=== PATIENT | female | born 1940 | race Caucasian/White ===

== ENCOUNTER 2022-03-08 12:11 | Inpatient (IN) | payer OTHER, SELFPAY ==
[2022-03-08] VITALS (29 sets, daily range): BP systolic 122–170; BP diastolic 40–81; PULSE 71–94; RESP 13–22; TEMP 36.8; O2SAT 95–100; BMI 21.5
--- NOTE | ~2022-03-08 | US_ITS ---
EXAMINATION: US carotid duplex BI DATE: 03/11/2022 10:12 INDICATION: Stroke. Cerebral atherosclerosis. TECHNIQUE: Grayscale, color Doppler, and pulsed Doppler images of the cervical carotid arteries were obtained. The degree of vessel stenosis is placed in one of the following categories: normal, <50%, 5 0-69%, >=70% but less than near-occlusion, near-occlusion, or total occlusion. Note that percent sten osis relative to normal distal artery lumen diameter is indirectly measured from velocity measurement s as described by Prasanth, et al. Radiology 2003; 229:340-346. COMPARISON: None. FINDINGS: RIGHT: The right common carotid artery (CCA) peak systolic velocity (PSV) is 59 cm/s. The right internal car otid artery (ICA) PSV is 88 cm/s. The right ICA end-diastolic velocity (EDV) is 17 cm/s. The right IC A/CCA PSV ratio is 1.5. Grayscale and color Doppler images yield an estimate of <50% diameter reducti on from plaque in the ICA. The external carotid artery (ECA) PSV is 67 cm/s. There is antegrade flow in the right vertebral artery. LEFT: The left CCA PSV is 58 cm/s. The left ICA PSV is 81 cm/s. The left ICA EDV is 16 cm/s. The left ICA/C CA PSV ratio is 1.4. Grayscale and color Doppler images yield an estimate of <50% diameter reduction from plaque in the ICA. The ECA PSV is 64 cm/s. There is antegrade flow in the left vertebral artery. IMPRESSION: 1. <50% stenosis in the right internal carotid artery. 2. <50% stenosis in the left internal carotid artery. Reviewed, dictated and finalized at location A.
--- NOTE | ~2022-03-08 | CT_ITS ---
EXAMINATION: CT brain wo con DATE: 03/08/2022 23:30 INDICATION: Confusion. TECHNIQUE: Computed tomography (CT) of the head was performed without intravenous contrast. The mA wa s adjusted according to patient size. Iterative reconstruction technique was employed. The dose-lengt h product was 605.33 mGy-cm. COMPARISON: None FINDINGS: There is an old infarct in left cerebellum. There is an old infarct in right caudate nucleu s. There are old infarcts in the left thalamus and left basal ganglia. There are scattered areas of l ow attenuation in the cerebral white matter. There is no intracranial hemorrhage, acute infarction, o r abnormal intracranial mass lesion. The ventricles are normal in size. There is mild mucosal thicken ing in right sphenoid sinus. There are likely changes of ocular lens replacement surgeries. The masto id air cells are normal. IMPRESSION: 1. Old infarcts in the bilateral basal ganglia, left thalamus, and left cerebellum. 2. Mild nonspecific cerebral white matter disease, which likely represents chronic small vessel ische cristiane disease. Reviewed, dictated and finalized at location A. IMPRESSION: 1. Old infarcts in the bilateral basal ganglia, left thalamus, and left cerebel lum. 2. 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
--- NOTE | ~2022-03-08 | XR_ITS ---
EXAMINATION: XR chest 1V portable DATE: 03/08/2022 12:36 INDICATION: Altered mental status. TECHNIQUE: A single frontal view of the chest was obtained. COMPARISON: None. FINDINGS: There is mild atelectasis at left lung base. No pleural effusion or pneumothorax. The heart size is normal. There is a transverse fracture of surgical neck of proximal right humerus. IMPRESSION: 1. Mild atelectasis at left lung base. 2. Displaced transverse fracture of surgical neck of proximal right humerus. Reviewed, dictated and finalized at location A.
--- NOTE | ~2022-03-08 | MR_ITS ---
EXAMINATION: MR brain/brain stem wo con DATE: 03/10/2022 13:56 INDICATION: ams, weakness, hx of strokes TECHNIQUE: Magnetic resonance imaging (MRI) of the brain and brainstem was performed without intraven ous contrast. Sequences included sagittal and axial T1-weighted SE, axial diffusion-weighted FS EPI A SSET, axial T2*-weighted GRE, axial T2-weighted FLAIR Propeller, and axial T2-weighted Propeller. Pos tcontrast axial and coronal T1-weighted SE was obtained. Apparent diffusion coefficient (ADC) maps we re created. COMPARISON: CT brain 03/08/2022. FINDINGS: Focal and small area of cortical restricted diffusion in the posterior left frontal lobe near the sharon maverick. Old bilateral basal ganglia, left lamina, and left cerebellar infarcts. No MRI evidence of hemor rhage or extra-axial collection. No suspicious foci of susceptibility to suggest prior intraparenchym al hemorrhage. Mild chronic white matter change. Mild chronic atrophy. Ventricles are proportional to brain volume. Basilar cisterns are patent. Flow voids are preserved. The aerated spaces are clear. Bilateral lens replacements. IMPRESSION: 1. Focal, small cortical infarct in the posterior left frontal lobe, near the vertex. Results reported telephonically to the patient's nurse Zandra Gilmore by Dr. Rivera at 4:05 PM on . Reviewed, dictated and finalized at location K. IMPRESSION: 1. Focal, small cortical infarct in the posterior left frontal lobe, near the v ertex. Results reported telephonically to the patient's nurse Zandra Gilmore by Dr. Rivera at 4:05 PM on 03/10/2022.
[2022-03-08 12:18] LABS: Glucose Point of Care 133 mg/dl (65-105)
--- NOTE | 2022-03-08 12:18 | ECG_ITS ---
Measurements Intervals [place] Rate: 71 P: 53 WV: 183 QRS: 34 QRSD: 89 T: 63 QT: 381 QTc: 414 Interpretive Statements SINUS RHYTHM WITHIN NORMAL LIMITS NO PREVIOUS ECG AVAILABLE FOR COMPARISON Electronically Signed On 03-09-2022 16:26:09 CDT by Perico Durham M.D.
[2022-03-08 12:48] LABS: Add Urine Microscopic? YES; Appearance Urine Cloudy (Clear); Bilirubin Urine 1+ (Negative); Blood Urine 2+ (Negative); Color Urine Yellow (Yellow); Glucose Urine UA Negative (Negative); Ketones Urine Negative (Negative); Leukocyte Esterase Ur 3+ LEU/UL (Negative); Nitrate Urine Positive (Negative); Protein Urine 2+ mg/dL (Negative); pH Urine 5.5 (5.0-9.0)
[2022-03-08] MEDS: SODIUM CHLORIDE 0.9% IV 1,000 ML 999 ML IV CONT (12:49)
[2022-03-08 12:56] LABS: Mucus Urine Rare /lpf; WBC Clumps Urine Present /HPF; WBC Urine >75 /hpf
[2022-03-08 13:10] LABS: Basophils Absolute Auto 0.1 K/mm3 (0.0-0.1); Basophils Percent Auto 0.6 % (0.2-1.2); Eosinophils Absolute Auto 0.3 K/mm3 (0-0.3); Eosinophils Percent Auto 2.8 % (0-4.4); Hematocrit 35.3 % (37.0-47.0); Hemoglobin 11.3 g/dL (12.0-15.0); Immature Granulocyte Absolute 0.05 K/mm3 (0.00-0.031); Immature Granulocyte Percent A 0.5 % (0-0.5); Lymphocytes Absolute Auto 1.21 K/mm3 (0.9-3.2); Lymphocytes Percent Auto 11.4 % (18.3-44.2); Mean Corpuscular Hemoglobin 30.1 pg (26-34); Mean Corpuscular Volume 93.9 fl (80-100); Mean Platelet Volume 10.5 fl (7.4-10.4); Monocytes Absolute Auto 0.9 K/mm3 (0.1-0.6); Monocytes Percent Auto 8.3 % (2.6-8.5); Neutrophils Absolute Auto 8.1 K/mm3 (1.3-6.7); Neutrophils Percent Auto 76.4 % (45.5-73.1); Platelet Count Result 180 k/mm3 (150-375); Red Blood Count 3.76 M/mm3 (4.2-5.4); Red Cell Distribution Width 13.4 % (11.5-14.5); White Blood Count 10.6 K/mm3 (4.5-10.0)
[2022-03-08 13:19] LABS: Alanine Aminotransferase 12 U/L (6-35); Albumin Level 3.9 g/dL (3.5-5.1); Alkaline Phosphatase 101 U/L (38-126); Anion Gap 9 mmol/L (8-16); Aspartate Amino Transferase 16 U/L (14-36); Bilirubin,Total 0.7 mg/dL (0.2-1.3); Blood Urea Nitrogen 41 mg/dL (7-17); Calcium 9.3 mg/dL (8.4-10.2); Carbon Dioxide 23 mmol/L (22-30); Chloride 105 mmol/L (98-107); Estimated Glomerular Filt Rate 29; Glucose 133 mg/dL (65-110); Potassium 3.8 mmol/L (3.4-5.0); Sodium 137 mmol/L (137-145)
[2022-03-08 13:21] LABS: Lactic Acid Reflex 1.9 mmol/L (0.7-2.0)
[2022-03-08 13:57] LABS: INR 1.1; Prothrombin Time 13.9 Seconds (11.1-14.7)
[2022-03-08 13:59] LABS: Partial Thromboplastin Time 32.8 SECONDS (22.3-36.8)
--- NOTE | 2022-03-08 14:57 | ED.GENADULT ---
HPI - General Adult General Chief complaint: Altered Mental Status Stated complaint: Altered Mental Status Time Seen by Provider: 03/08/22 12:14 History of Present Illness HPI narrative: Patient is an 82-year-old female who presents to the ER with acute confusion. Patient is somnolent and poorly responsive to noxious stimuli. No recent trauma or fall. Family reports she was slightly more confused yesterday when visiting her but apparently something changed and lasted 40 minutes. She woke patient has history of CVA. Patient moves all extremities to noxious stimuli wakes up with morning and yells at this physician during exam. Related Data Allergies Allergy/AdvReac Type Severity Reaction Status Date / Time cilostazol Allergy Unknown Verified 03/08/22 13:21 ciprofloxacin Allergy Unknown Verified 03/08/22 13:21 codeine Allergy Unknown Verified 03/08/22 13:21 enalapril Allergy Unknown Verified 03/08/22 13:21 Penicillins Allergy Unknown Verified 03/08/22 13:21 pentoxifylline Allergy Unknown Verified 03/08/22 13:21 semaglutide [From Ozempic] Allergy Unknown Verified 03/08/22 13:21 tetanus and diphtheria Allergy Unknown Verified 03/08/22 13:21 toxoids Review of Systems Review of Systems: ROS unobtainable: Yes unobtainable due to medical condition PMFSH Past Medical History Medical History (Updated 03/08/22 @ 15:03 by García Rojas MD) CKD (chronic kidney disease), stage III CVA (cerebral vascular accident) Diabetes History of breast cancer Humerus fracture Surgical History Surgical History (Updated 03/08/22 @ 15:00 by García Rojas MD) History of hip replacement Social History Social History (Updated 03/08/22 @ 15:01 by García Rojas MD) Smoking status: Never smoker Exam Narrative: GENERAL: Fatigued-appearing, well-nourished, and in no acute distress. HEAD: Normocephalic, atraumatic. EYES: PERRL and EOMI. ENT: Mucous membranes moist. CHEST: Clear to auscultation. No respiratory distress. HEART: Regular rate and rhythm. Normal peripheral pulses. ABDOMEN: Soft, nontender, nondistended. EXTREMITIES: Normal range of motion. No edema. SKIN: Warm, dry, no rash. NEURO: Moves all extremities with normal strength and noxious stimuli. No facial droop. ALert and oriented x1. Course Course Emergency Course: Admitted to hospital service for UTI and metabolic encephalopathy. Patient improving with fluids. Vital Signs Vital signs: Vital Signs Pulse Rate 81 03/08/22 12:06 Respiratory Rate 16 03/08/22 12:06 Blood Pressure 154/57 H 03/08/22 12:06 Pulse Oximetry 96 03/08/22 12:06 Oxygen Delivery Room Air 03/08/22 12:06 Pulse Rate 78 03/08/22 13:45 Respiratory Rate 19 03/08/22 13:45 Blood Pressure 166/52 H 03/08/22 13:31 Pulse Oximetry 98 03/08/22 13:45 Oxygen Delivery Room Air 03/08/22 12:06 Medical Decision Making Vital Signs Vital Signs: Vital Signs Pulse Rate 81 03/08/22 12:06 Respiratory Rate 16 03/08/22 12:06 Blood Pressure 154/57 H 03/08/22 12:06 Pulse Oximetry 96 03/08/22 12:06 Oxygen Delivery Room Air 03/08/22 12:06 Pulse Rate 78 03/08/22 13:45 Respiratory Rate 19 03/08/22 13:45 Blood Pressure 166/52 H 03/08/22 13:31 Pulse Oximetry 98 03/08/22 13:45 Oxygen Delivery Room Air 03/08/22 12:06 Lab Data Result diagrams: 03/08/22 12:50 03/08/22 12:50 Labs: Lab Results 03/08/22 03/08/22 03/08/22 Range/Units 12:16 12:31 12:50 WBC 10.6 H (4.5-10.0) K/mm3 RBC 3.76 L (4.2-5.4) M/mm3 Hgb 11.3 L (12.0-15.0) g/dL Hct 35.3 L (37.0-47.0) % MCV 93.9 (80-100) fl MCH 30.1 (26-34) pg MCHC 32.0 (32-36) g/dl RDW 13.4 (11.5-14.5) % Plt Count 180 (150-375) k/mm3 MPV 10.5 H (7.4-10.4) fl Immature Gran % (Auto) 0.5 (0-0.5) % Neut % (Auto) 76.4 H (45.5-73.1) % Lymph % (Auto) 11.4 L (18.3-44.2) % [place] % (Auto)
--- NOTE | 2022-03-08 16:50 | PM.IMHP ---
H&P: HPI History of Present Illness Date/Time: 03/08/22 16:50 <Christie Thomas PA-C - Last Filed: 03/08/22 23:04> Chief Complaint: Confusion. <Christie Thomas PA-C - Last Filed: 03/08/22 23:04> Narrative: This is an 82-year-old female with history of stroke, dyslipidemia, diabetes, COPD, and DVT who presented to the ED via EMS from [place] for evaluation of confusion. She is alert and oriented at the time my evaluation however seems to be a bit confused as to why she was brought here to the ER today and as such some of the following is supplemented via a review of her electronic medical records. She reports that she lives in her own home in [place] and that last week she sustained a fall in the driveway and broke her right arm. She has apparently been at [place] for rehab since that time. Family members saw her yesterday and this morning and they report that she seemed perhaps a bit confused though nothing significant or startling. Around noontime staff noticed that she was confused and difficult to arouse and emergency services were contacted. EMS gave her Narcan however I do not see that there was any documented response. She was confused and a bit combative in the emergency department and I was asked to admit her after she was found to have evidence of urinary tract infection as well as renal insufficiency. Currently she is complaining of urinary urgency and frequency though she denies overt dysuria. She reports chills but no fever to her knowledge. We did discuss why she was brought here today and she does not really remember the episode this morning however she has noticed that she has seemed confused since she arrived to [place] and she feels like ?they are doping me up.? I do not see any narcotics listed on her medication list, however. <Christie Thomas PA-C - Last Filed: 03/08/22 23:04> Review of Systems Review of Systems: Twelve systems were reviewed. Somewhat limited as she is confused about the events of this morning. No history of seizures or documented seizure activity today. She sustained a fall last week in which she broke her right arm. She does not think she had any head trauma. She has not had a fall since last week. She does not think that she has had a Dennis catheter and recently. No cold or flu symptoms. No chest pain or shortness of breath. Appetite has been okay but she has not been eating as much as she is having difficulties feeding herself and drinking as her right arm is in a sling and she is right-handed. Except as documented, all other systems were reviewed and are negative. <Christie Thomas PA-C - Last Filed: 03/08/22 23:04> [facility] Past Medical History Medical History: Medical History Cerebrovascular accident Chronic kidney disease Deep venous thrombosis History of breast cancer Mitral valve insufficiency Osteoarthritis Rheumatic mitral insufficiency Right humeral fracture Type 2 diabetes mellitus Vitamin D deficiency <Christie Thomas PA-C - Last Filed: 03/08/22 23:04> Surgical History Surgical History: Surgical History History of bladder surgery History of hip replacement History of hysterectomy History of left mastectomy <Christie Thomas PA-C - Last Filed: 03/08/22 23:04> Family History Family History: Family History Other Diabetes mellitus Hypertension <Christie Thomas PA-C - Last Filed: 03/08/22 23:04> Social History Social History: Social History Social History: Surrogate decision maker: Perico Allison, son. Code status: Do not resuscitate. Smoking status: Former smoker Smoking end date: 09/16/16 Alcohol intake: never Substance use: never Substance use type: does not use Spiritual care concerns: No
[2022-03-08] MEDS: SODIUM CHLORIDE 0.9% IV 1,000 ML 125 ML IV CONT (20:29)
[2022-03-08] MEDS: ACETAMINOPHEN 325 MG TABLET 650 MG PO (21:08)
[2022-03-08 22:25] LABS: Glucose Point of Care 153 mg/dl (65-105)
[2022-03-09 00:19] VITALS: BP 150/56; PULSE 73; RESP 14; TEMP 36.4; O2SAT 98
[2022-03-09 05:08] LABS: Hematocrit 34.9 % (37.0-47.0); Hemoglobin 11.2 g/dL (12.0-15.0); Mean Corpuscular HGB Conc 32.1 g/dl (32-36); Mean Corpuscular Hemoglobin 30.6 pg (26-34); Mean Corpuscular Volume 95.4 fl (80-100); Mean Platelet Volume 10.2 fl (7.4-10.4); Platelet Count Result 187 k/mm3 (150-375); Red Blood Count 3.66 M/mm3 (4.2-5.4); Red Cell Distribution Width 13.2 % (11.5-14.5); White Blood Count 6.9 K/mm3 (4.5-10.0)
[2022-03-09 05:19] LABS: Anion Gap 6 mmol/L (8-16); Blood Urea Nitrogen 35 mg/dL (7-17); Calcium 8.6 mg/dL (8.4-10.2); Carbon Dioxide 20 mmol/L (22-30); Chloride 113 mmol/L (98-107); Estimated CRCL calculation 24 ml/min; Estimated Glomerular Filt Rate 33; Glucose 104 mg/dL (65-110); Magnesium 1.8 mg/dL (1.6-2.3); Potassium 3.7 mmol/L (3.4-5.0); Sodium 139 mmol/L (137-145)
[2022-03-09 05:40] LABS: Hemoglobin A1C 5.9 % (<5.7)
[2022-03-09] MEDS: SODIUM CHLORIDE 0.9% IV 1,000 ML 125 ML IV CONT (05:52)
[2022-03-09 05:55] VITALS: BP 165/61; PULSE 73; RESP 16; TEMP 36.4; O2SAT 98
[2022-03-09 07:37] LABS: Glucose Point of Care 115 mg/dl (65-105)
[2022-03-09] MEDS: PRAVASTATIN SODIUM 10 MG TABLET PO (08:24)
[2022-03-09] MEDS: ASPIRIN 81 MG ENTERIC TABLET PO (08:24)
[2022-03-09] MEDS: ACETAMINOPHEN 325 MG TABLET 650 MG PO ×2 (08:24→19:33)
[2022-03-09] MEDS: polyethylene glycoL 3350 17 GM POWD.PACK PO (08:24)
[2022-03-09] MEDS: CLOPIDOGREL BISULFATE 75 MG TABLET PO (08:24)
[2022-03-09] MEDS: CHOLECALCIFEROL 1,000 UNITS TABLET 2000 UNITS PO (08:24)
[2022-03-09] MEDS: ENOXAPARIN 30 MG/0.3 ML SYRINGE SUB-Q (08:24)
[2022-03-09] MEDS: CYANOCOBALAMIN 1,000 MCG TABLET 1000 MCG PO (08:24)
[2022-03-09 09:00] VITALS: BP 112/44; PULSE 76; RESP 16; TEMP 36.2; O2SAT 97
--- NOTE | 2022-03-09 10:00 | P.PNIM_ITS ---
Progress Note: A&P Assessment and Plan (1) Urinary tract infection: Code(s): N39.0 - Urinary tract infection, site not specified Status: Acute Assessment and Plan: * Reported urinary symptoms including urgency and frequency * WBC elevated at time of admission, current 6.9 * UA indicates infection with cloudy yellow urine, positive nitrate, 3+ leukocyte esterase, WBC >75, WBC clumps present * Continue Rocephin for now * Urine culture pending * Adjust therapy as cultures are resulted (2) Transient alteration of awareness: Code(s): R40.4 - Transient alteration of awareness Status: Acute Assessment and Plan: * Etiology not entirely clear though she appears to be back at baseline at this time. * Seems to be better, she is A&O x 4 * Nursing reports odd statements and questionable conversation * Could be secondary to UTI * HX of CVA * No indications from current medications (3) Chronic kidney disease: Code(s): N18.9 - Chronic kidney disease, unspecified Status: Acute Assessment and Plan: * Current BUN/Cr 35/1.50 * Trending down since admission * IV fluids given * Baseline unknown * avoid nephrotoxic medications * Trend labs * Labs in the am (4) Type 2 diabetes mellitus: Code(s): E11.9 - Type 2 diabetes mellitus without complications Status: Acute Assessment and Plan: * Current glucose 104 * A1c 5.9 * Hold metformin while hospitalized. * Initiate sliding scale insulin * Accu-Cheks * hypoglycemic protocol * Trend glucose * Adjust therapy as indicated (5) Right humeral fracture: Code(s): S42.301A - Unspecified fracture of shaft of humerus, right arm, initial encounter for closed fracture Status: Acute Assessment and Plan: * Sustained in a ground level fall last week. * Acetaminophen available as needed for pain. * Continue sling for immobilization. Time Spent With Patient Time with patient: Greater than 35 minutes Subjective Date/time seen: 03/09/22 10:00 Interval history: 03/09/22 10:00 Patient is sitting in the chair. She is feeling ok. She stated that she is having some pain in her arm. She denies any chest pain, shortness of breath, nausea, vomiting, diarrhea, constipation, weakness, or fatigue. She stated that she is tired, however, she is getting good sleep. She also stated that urination just comes on. She knows when it comes, however, it is very urgent and she has to go as soon as she has the feeling. 03/08/22? 16:50 This is an 82-year-old female with history of stroke, dyslipidemia, diabetes, COPD, and DVT who presented to the ED via EMS from [place] for evaluation of confusion. She is alert and oriented at the time my evaluation however seems to be a bit confused as to why she was brought here to the ER today and as such some of the following is supplemented via a review of her electronic medical records. She reports that she lives in her own home in [place] and that last week she sustained a fall in the driveway and broke her right arm. She has apparently been at [facility] for rehab since that time. Family members saw her yesterday and this morning and they report that she seemed perhaps a bit confused though nothing significant or startling. Around noontime staff noticed that she was confused and difficult to arouse and emergency services were contacted. EMS gave her Narcan however I do not see that there was any documente
--- NOTE | 2022-03-09 10:00 | PM.IMPN ---
Progress Note: A&P Assessment and Plan (1) Urinary tract infection: Code(s): N39.0 - Urinary tract infection, site not specified Status: Acute Assessment and Plan: Reported urinary symptoms including urgency and frequency WBC elevated at time of admission, current 6.9 UA indicates infection with cloudy yellow urine, positive nitrate, 3+ leukocyte esterase, WBC >75, WBC clumps present Continue Rocephin for now Urine culture pending Adjust therapy as cultures are resulted (2) Transient alteration of awareness: Code(s): R40.4 - Transient alteration of awareness Status: Acute Assessment and Plan: Etiology not entirely clear though she appears to be back at baseline at this time. Seems to be better, she is A&O x 4 Nursing reports odd statements and questionable conversation Could be secondary to UTI HX of CVA No indications from current medications (3) Chronic kidney disease: Code(s): N18.9 - Chronic kidney disease, unspecified Status: Acute Assessment and Plan: Current BUN/Cr 35/1.50 Trending down since admission IV fluids given Baseline unknown avoid nephrotoxic medications Trend labs Labs in the am (4) Type 2 diabetes mellitus: Code(s): E11.9 - Type 2 diabetes mellitus without complications Status: Acute Assessment and Plan: Current glucose 104 A1c 5.9 Hold metformin while hospitalized. Initiate sliding scale insulin Accu-Cheks hypoglycemic protocol Trend glucose Adjust therapy as indicated (5) Right humeral fracture: Code(s): S42.301A - Unspecified fracture of shaft of humerus, right arm, initial encounter for closed fracture Status: Acute Assessment and Plan: Sustained in a ground level fall last week. Acetaminophen available as needed for pain. Continue sling for immobilization. Time Spent With Patient Time with patient: Greater than 35 minutes Subjective Date/time seen: 03/09/22 10:00 Interval history: 03/09/22 10:00 Patient is sitting in the chair. She is feeling ok. She stated that she is having some pain in her arm. She denies any chest pain, shortness of breath, nausea, vomiting, diarrhea, constipation, weakness, or fatigue. She stated that she is tired, however, she is getting good sleep. She also stated that urination just comes on. She knows when it comes, however, it is very urgent and she has to go as soon as she has the feeling. 03/08/22? 16:50 This is an 82-year-old female with history of stroke, dyslipidemia, diabetes, COPD, and DVT who presented to the ED via EMS from [place] for evaluation of confusion. She is alert and oriented at the time my evaluation however seems to be a bit confused as to why she was brought here to the ER today and as such some of the following is supplemented via a review of her electronic medical records. She reports that she lives in her own home in [place] and that last week she sustained a fall in the driveway and broke her right arm. She has apparently been at [facility] for rehab since that time. Family members saw her yesterday and this morning and they report that she seemed perhaps a bit confused though nothing significant or startling. Around noontime staff noticed that she was confused and difficult to arouse and emergency services were contacted. EMS gave her Narcan however I do not see that there was any documented response. She was confused and a bit combative in the emergency department and I was asked to admit her after she was found to have evidence of urinary tract infection as well as renal insufficiency. Currently she is complaining of urinary urgency and frequency though she denies overt dysuria. She reports chills but no fever to her knowledge. We did discuss why she was brought here today and she does not really remember the episode this morning however she has noticed yoana
[2022-03-09 10:36] VITALS: BMI 21.9
[2022-03-09 11:43] LABS: Glucose Point of Care 182 mg/dl (65-105)
[2022-03-09 14:00] VITALS: BP 107/45; PULSE 72; RESP 16; TEMP 36.4; O2SAT 98
[2022-03-09 16:32] LABS: Glucose Point of Care 132 mg/dl (65-105)
[2022-03-09 19:42] VITALS: BP 145/48; PULSE 81; RESP 17; TEMP 36.4; O2SAT 98
[2022-03-09 20:41] LABS: Glucose Point of Care 134 mg/dl (65-105)
[2022-03-09 23:29] VITALS: BP 160/58; PULSE 79; RESP 17; TEMP 36.2; O2SAT 98
[2022-03-10 04:00] VITALS: BP 160/61; PULSE 84; RESP 17; TEMP 36.3; O2SAT 98
[2022-03-10 05:41] LABS: Alanine Aminotransferase 10 U/L (6-35); Albumin Level 3.8 g/dL (3.5-5.1); Alkaline Phosphatase 97 U/L (38-126); Anion Gap 9 mmol/L (8-16); Aspartate Amino Transferase 17 U/L (14-36); Bilirubin,Total 0.6 mg/dL (0.2-1.3); Blood Urea Nitrogen 32 mg/dL (7-17); Carbon Dioxide 21 mmol/L (22-30); Chloride 108 mmol/L (98-107); Estimated CRCL calculation 26 ml/min; Estimated Glomerular Filt Rate 36; Glucose 130 mg/dL (65-110); Magnesium 1.7 mg/dL (1.6-2.3); Potassium 3.7 mmol/L (3.4-5.0); Sodium 138 mmol/L (137-145)
[2022-03-10 05:58] LABS: Basophils Absolute Auto 0.1 K/mm3 (0.0-0.1); Basophils Percent Auto 0.8 % (0.2-1.2); Eosinophils Absolute Auto 0.5 K/mm3 (0-0.3); Eosinophils Percent Auto 6.2 % (0-4.4); Hematocrit 36.3 % (37.0-47.0); Hemoglobin 11.8 g/dL (12.0-15.0); Immature Granulocyte Absolute 0.08 K/mm3 (0.00-0.031); Lymphocytes Absolute Auto 1.27 K/mm3 (0.9-3.2); Lymphocytes Percent Auto 15.2 % (18.3-44.2); Mean Corpuscular HGB Conc 32.5 g/dl (32-36); Mean Corpuscular Hemoglobin 30.1 pg (26-34); Mean Corpuscular Volume 92.6 fl (80-100); Mean Platelet Volume 10.3 fl (7.4-10.4); Monocytes Absolute Auto 0.7 K/mm3 (0.1-0.6); Monocytes Percent Auto 8.8 % (2.6-8.5); Neutrophils Absolute Auto 5.7 K/mm3 (1.3-6.7); Platelet Count Result 218 k/mm3 (150-375); Red Blood Count 3.92 M/mm3 (4.2-5.4); Red Cell Distribution Width 13.1 % (11.5-14.5); White Blood Count 8.3 K/mm3 (4.5-10.0)
[2022-03-10 07:38] LABS: Glucose Point of Care 138 mg/dl (65-105)
[2022-03-10] MEDS: ENOXAPARIN 30 MG/0.3 ML SYRINGE SUB-Q (09:10)
[2022-03-10] MEDS: CEFDINIR 300 MG CAPSULE PO (09:11)
[2022-03-10] MEDS: CYANOCOBALAMIN 1,000 MCG TABLET 1000 MCG PO (09:11)
[2022-03-10] MEDS: PRAVASTATIN SODIUM 10 MG TABLET PO (09:11)
[2022-03-10] MEDS: polyethylene glycoL 3350 17 GM POWD.PACK PO (09:11)
[2022-03-10] MEDS: ASPIRIN 81 MG ENTERIC TABLET PO (09:11)
[2022-03-10] MEDS: CHOLECALCIFEROL 1,000 UNITS TABLET 2000 UNITS PO (09:11)
[2022-03-10] MEDS: CLOPIDOGREL BISULFATE 75 MG TABLET PO (09:11)
[2022-03-10 11:40] LABS: Glucose Point of Care 161 mg/dl (65-105)
--- NOTE | 2022-03-10 12:25 | PM.IMPN ---
Progress Note: A&P Assessment and Plan (1) Acute metabolic encephalopathy: Code(s): G93.41 - Metabolic encephalopathy <Susan JustenRobin Ramesh PA-C - Last Filed: 03/10/22 16:17> Status: Acute <Susanlenka Quinteroashish PA-C - Last Filed: 03/10/22 16:17> Assessment and Plan: Patient has worsening confusion today and was weaker with physical therapy -could be due to UTI, will change oral antibiotics to IV -obtain blood cultures -I spoke with the son who states 10 days ago the patient was completely normal and this is not like her. He is concerned that she has had another stroke as she has had strokes in the past -although stroke is less likely, due to her increased weakness and posterior leaning with PT, will order brain MRI. No focal deficits on exam <Susanlenka Ramesh PA-C - Last Filed: 03/10/22 16:17> (2) Urinary tract infection: Code(s): N39.0 - Urinary tract infection, site not specified <Susan JustenRobin Ramesh PA-C - Last Filed: 03/10/22 16:17> Status: Acute <Susan ARobin Domitila PA-C - Last Filed: 03/10/22 16:17> Assessment and Plan: Urine culture growing klebs aerogenes susceptible to ceftriaxone -due to her worsening mental status, will transition to ceftriaxone. -Will monitor for allergic reactions. Patient has a penicillin allergy but that cross sensitivity is low <Susan Ramesh PA-C - Last Filed: 03/10/22 16:17> (3) Transient alteration of awareness: Code(s): R40.4 - Transient alteration of awareness <Susan Mirta Ramesh PA-C - Last Filed: 03/10/22 16:17> Status: Acute <Susan ARobin Ramesh PA-C - Last Filed: 03/10/22 16:17> Assessment and Plan: As above <Susan ARobin Ramesh PA-C - Last Filed: 03/10/22 16:17> (4) Chronic kidney disease: Code(s): N18.9 - Chronic kidney disease, unspecified <Susanlenka Ramesh PA-C - Last Filed: 03/10/22 16:17> Status: Acute <Susan Ramesh PA-C - Last Filed: 03/10/22 16:17> Assessment and Plan: Family confirms that she has chronic kidney disease. Creatinine is stable <Susan Ramesh PA-C - Last Filed: 03/10/22 16:17> (5) Type 2 diabetes mellitus: Code(s): E11.9 - Type 2 diabetes mellitus without complications <Susan Ramesh PA-C - Last Filed: 03/10/22 16:17> Status: Acute <Susan Ramesh PA-C - Last Filed: 03/10/22 16:17> Assessment and Plan: Last glucose 161 -A1c 5.9 -Hold metformin while hospitalized. -continuing sliding scale <Susan Ramesh PA-C - Last Filed: 03/10/22 16:17> (6) Right humeral fracture: Code(s): S42.301A - Unspecified fracture of shaft of humerus, right arm, initial encounter for closed fracture <Susan Ramesh PA-C - Last Filed: 03/10/22 16:17> Status: Acute <Susan Ramesh PA-C - Last Filed: 03/10/22 16:17> Assessment and Plan: Sustained in a ground level fall last week. Acetaminophen available as needed for pain. Continue sling for immobilization. <Susan Ramesh PA-C - Last Filed: 03/10/22 16:17> Assessment and Plan: Patient has a non gap slight acidosis that is improving. Could be due to normal saline she received earlier -monitor daily labs <Susan Ramesh PA-C - Last Filed: 03/10/22 16:17> Time Spent With Patient Time with patient: 25 - 35 minutes <Susan Ramesh PA-C - Last Filed: 03/10/22 16:17> Subjective Date/time seen: 03/10/22 12:25 <Susan Ramesh PA-C - Last Filed: 03/10/22 16:17> Interval history: Pt is a 82 y/o female here for confusion. Patient was seen today and per staff she was more confused and weak. She was unable to tell me where she was but was able to hold a conversation for the most part. She states she has pain all over and that she has no appetite. She cannot localize any certain pain and denies chest pain and shortness of breath. I called her son, S
[2022-03-10 14:00] VITALS: BP 164/61; PULSE 79; RESP 20; TEMP 36.6; O2SAT 100
--- NOTE | 2022-03-10 16:10 | PC.NURSE ---
Recieved a call from Emmanuel Rivera reporting results of patient brain MRI and it shows small acute infarct in left posterior frontal lobe. Spoke to Susan Ramesh and gave results. No new orders given at this time.
[2022-03-10 16:45] LABS: Glucose Point of Care 124 mg/dl (65-105)
[2022-03-10 19:29] VITALS: BP 178/58; PULSE 76; RESP 16; TEMP 36.3; O2SAT 97
[2022-03-10 21:40] LABS: Glucose Point of Care 126 mg/dl (65-105)
[2022-03-11 01:30] VITALS: BP 147/47; PULSE 76; RESP 18; TEMP 36.1; O2SAT 98
[2022-03-11 04:05] VITALS: BP 153/57; PULSE 77; RESP 18; TEMP 36.6; O2SAT 100
[2022-03-11 05:42] LABS: Basophils Absolute Auto 0.1 K/mm3 (0.0-0.1); Basophils Percent Auto 0.9 % (0.2-1.2); Eosinophils Absolute Auto 0.4 K/mm3 (0-0.3); Eosinophils Percent Auto 4.9 % (0-4.4); Hematocrit 36.3 % (37.0-47.0); Hemoglobin 11.4 g/dL (12.0-15.0); Immature Granulocyte Absolute 0.09 K/mm3 (0.00-0.031); Immature Granulocyte Percent A 1.1 % (0-0.5); Lymphocytes Absolute Auto 1.47 K/mm3 (0.9-3.2); Lymphocytes Percent Auto 18.1 % (18.3-44.2); Mean Corpuscular HGB Conc 31.4 g/dl (32-36); Mean Corpuscular Hemoglobin 30.1 pg (26-34); Mean Corpuscular Volume 95.8 fl (80-100); Monocytes Absolute Auto 0.8 K/mm3 (0.1-0.6); Monocytes Percent Auto 9.8 % (2.6-8.5); Neutrophils Absolute Auto 5.3 K/mm3 (1.3-6.7); Neutrophils Percent Auto 65.2 % (45.5-73.1); Platelet Count Result 199 k/mm3 (150-375); Red Blood Count 3.79 M/mm3 (4.2-5.4); Red Cell Distribution Width 13.2 % (11.5-14.5); White Blood Count 8.1 K/mm3 (4.5-10.0)
[2022-03-11 05:46] LABS: Anion Gap 9 mmol/L (8-16); Blood Urea Nitrogen 32 mg/dL (7-17); Calcium 8.9 mg/dL (8.4-10.2); Carbon Dioxide 20 mmol/L (22-30); Chloride 108 mmol/L (98-107); Cholesterol 102 mg/dL (0-200); Creatine Kinase 46 U/L (30-135); Estimated CRCL calculation 27 ml/min; Estimated Glomerular Filt Rate 39; Glucose 122 mg/dL (65-110); HDL Direct 28 mg/dL; Potassium 3.8 mmol/L (3.4-5.0); Sodium 137 mmol/L (137-145); Triglycerides 140 mg/dL (<150)
[2022-03-11 05:58] LABS: LDL Cholesterol Direct 36 mg/dL
[2022-03-11 07:50] LABS: Glucose Point of Care 136 mg/dl (65-105)
[2022-03-11] MEDS: ASPIRIN 81 MG ENTERIC TABLET PO (11:12)
[2022-03-11] MEDS: CYANOCOBALAMIN 1,000 MCG TABLET 1000 MCG PO (11:13)
[2022-03-11] MEDS: CLOPIDOGREL BISULFATE 75 MG TABLET PO (11:13)
[2022-03-11] MEDS: ACETAMINOPHEN 325 MG TABLET 650 MG PO (11:13)
[2022-03-11] MEDS: CHOLECALCIFEROL 1,000 UNITS TABLET 2000 UNITS PO (11:13)
[2022-03-11] MEDS: ATORVASTATIN 40 MG TABLET PO (11:13)
[2022-03-11] MEDS: ENOXAPARIN 30 MG/0.3 ML SYRINGE SUB-Q (11:14)
--- NOTE | 2022-03-11 11:30 | WPDNEURCNPN ---
Assessment and Plan Assessment and plan (1) Seizure disorder: Code(s): G40.909 - Epilepsy, unspecified, not intractable, without status epilepticus Status: Acute Additional Plan 1 transient alertness of awareness will obtain the EEG to rule out the possibility of seizure or underlying Petterchak status changes because of ongoing chronic encephalopathy and rest of the medical problems will be handed according, her MRI of the brain has revealed focal with small cortical infarct in the posterior left frontal lobe near the aortic with a is the triggering factor for the focal seizure is unclear but again as mentioned above EEG will be obtained in addition to the Doppler studies of the carotid Consult date: 03/11/22 Reason for consult: Change in mental status HPI: Nirmala Allison is a 82 year old female admitted to the hospital through the emergency room for the complaints of acute confusion at the time of initial evaluation in the emergency room she was somnolent and poorly responsive to noxious stimuli there was no history of recent trauma or fall as per the family she was somewhat confused yesterday but subsequently the change in the mental status lasted for 40 minutes patient does have a history of cerebrovascular accident in the past and has been taking multiple medication. she has ongoing history of chronic kidney disease stage 3, diabetes mellitus, and cerebrovascular accident in the past, in addition she has undergone hip replacement she has never smoker and initial evaluation revealed her to have normal vital signs except the blood pressure 154/57 routine labs were normal her chest x-ray revealed only displaced transfer fracture of the surgical neck of the proximal right humerus, she is not alcohol intake or substance user but she is a former smoker but she smoked in September of 2016 her outpatient medications included particularly aspirin 81 mg daily, clopidogrel 75 mg daily, metformin 500 mg twice a day, and pravastatin 10 mg daily her initial lab evaluations were normal she has been admitted to the hospital for the complaints of transient alteration awareness and she was given Narcan in the field as well Review of Systems Review of Systems: All systems reviewed & are unremarkable except as noted in HPI and below PMFSH Past Medical History Medical History Cerebrovascular accident Chronic kidney disease Deep venous thrombosis History of breast cancer Mitral valve insufficiency Osteoarthritis Rheumatic mitral insufficiency Right humeral fracture Type 2 diabetes mellitus Vitamin D deficiency Surgical History Surgical History History of bladder surgery History of hip replacement History of hysterectomy History of left mastectomy Family History Family History Other Diabetes mellitus Hypertension Social History Social History Social History: Surrogate decision maker: Perico Allison, son. Code status: Do not resuscitate. Smoking status: Former smoker Smoking end date: 09/16/16 Alcohol intake: never Substance use: never Substance use type: does not use Spiritual care concerns: No Meds Home Medications and Allergies Home Medications Medication Instructions Recorded Confirmed Type acetaminophen 500 mg tablet 1,000 mg PO BID PRN pain 03/08/22 03/08/22 History aspirin 81 mg tablet 81 mg PO DAILY 03/08/22 03/08/22 History cholecalciferol (vitamin D3) 50 1 cap PO DAILY 03/08/22 03/08/22 History mcg (2,000 unit) capsule clopidogrel 75 mg tablet 1 tablet PO DAILY 03/08/22 03/08/22 History cyanocobalamin (vitamin B-12) 1 tablet PO DAILY 03/08/22 03/08/22 History 1,000 mcg tablet meclizine 12.5 mg tablet 1 tablet PO TID PRN Dizziness 03/08/22 03/08/22 History metformin 500 mg tablet 1 tablet PO DA
[2022-03-11 11:48] LABS: Glucose Point of Care 273 mg/dl (65-105)
--- NOTE | 2022-03-11 13:43 | PCSTNOTE ---
Please refer to the Bedside Swallow Evaluation in the EMR. Please note, silent aspiration cannot be ruled out at bedside.
[2022-03-11 14:00] VITALS: BP 134/56; PULSE 72; RESP 20; TEMP 36.3; O2SAT 98
--- NOTE | 2022-03-11 15:42 | PCPTNOTE ---
The patient treatment was not able to be completed on this date due to RN requesting for patient to rest. Will plan to continue treatment per plan of care.
--- NOTE | 2022-03-11 15:45 | PM.IMPN ---
Progress Note: A&P Assessment and Plan (1) Acute metabolic encephalopathy: Code(s): G93.41 - Metabolic encephalopathy Status: Acute Assessment and Plan: Patient has worsening confusion and was weaker with physical therapy. Chest x-ray showed mild atelectasis at the left lung base. CT the brain showed old infarcts. Brain MRI showed old bilateral basal ganglia, left lamina and left cerebellar infarcts. She was noted to have a focal and small area of cortical restricted diffusion in the posterior left frontal lobe consistent with acute infarct. Suspect acute mental status changes related to stroke and/or UTI. More oriented today but still groggy. She is not on any narcotics. Continue treatment for UTI. Continue Lipitor, Plavix and aspirin. Continue PT and OT. (2) Acute CVA (cerebrovascular accident): Code(s): I63.9 - Cerebral infarction, unspecified Status: Acute Assessment and Plan: MRI of the brain as mentioned above. Patient appears to have had acute small stroke. Appreciate Neurology input. Carotid ultrasound and echocardiogram are pending. Continue aspirin, Plavix and Lipitor. (3) Urinary tract infection: Code(s): N39.0 - Urinary tract infection, site not specified Status: Acute Assessment and Plan: UA noted. BCx NGTD. Urine culture growing Klebsiella aerogenes susceptible to ceftriaxone. Continue IV ceftriaxone. (4) Transient alteration of awareness: Code(s): R40.4 - Transient alteration of awareness Status: Acute Assessment and Plan: As above (5) Acute kidney injury superimposed on chronic kidney disease: Code(s): N17.9 - Acute kidney failure, unspecified; N18.9 - Chronic kidney disease, unspecified Status: Acute Assessment and Plan: Patient has underlying CKD per family. No old records here to review. Creatinine on admission was 1.7 but has trended down to 1.3 now. Probably related to UTI and/or dehydration. Patient continues to have a mild non gap metabolic acidosis probably related to renal recovery. Continue to follow. (6) Type 2 diabetes mellitus: Code(s): E11.9 - Type 2 diabetes mellitus without complications Status: Acute Assessment and Plan: A1c 5.9. The patient's blood glucose was reviewed on 03/11 Glucose is elevated at times but overall well controlled. Continue AccuCheks covering with sliding scale. Hypoglycemia protocol available as needed. Continue to monitor. (7) Right humeral fracture: Code(s): S42.301A - Unspecified fracture of shaft of humerus, right arm, initial encounter for closed fracture Status: Acute Assessment and Plan: Patient had a ground level fall last week and sustained a right humeral fracture. Acetaminophen available as needed for pain. Continue sling for immobilization. Continue PT and OT. Plan DVT prophylaxis: Lovenox Code status: DNR. Subjective Date/time seen: 03/11/22 15:45 Interval history: 82yo female with DM and CKD here for confusion. Patient is more oriented today but still feels confused. She denies chest pain or shortness of breath. She feels groggy today. She did pass her bedside swallow test today and speech therapy recommended regular diet with thin liquids. Exam Narrative: AF 97.3 134/56 72 20 98% ra Gen - NARD lying semi recumbent in bed Chest -lungs clear anteriorly. Normal respiratory rate CV - RRR S1/S2 Abd - Soft, NT/ND, Positive BS Ext - No pedal edema. 2+ radial pulses bilaterally. Right upper extremity in a sling. Neuro - groggy but oriented x4. Nonfocal exam. Normal sensation to the right hand. Psych - Nml mood and affect Skin - Warm and dry Objective Data Vital Signs Vital Signs: Vital Signs - 24 hr 03/10/22 19:29 03/11/22 01:30 03/11/22 04:05 Temperature 97.4 F L 97 F L 97.8 F Pulse Rate 76 76 77 Respiratory Rate 16 18 18 Blood Pressure 178/58 H 147/
[2022-03-11 16:27] LABS: Glucose Point of Care 102 mg/dl (65-105)
[2022-03-11 19:35] VITALS: BP 133/50; PULSE 70; RESP 17; TEMP 36.1; O2SAT 99
[2022-03-11 20:00] VITALS: PULSE 70; RESP 17; O2SAT 99
[2022-03-11 20:53] LABS: Glucose Point of Care 124 mg/dl (65-105)
--- NOTE | 2022-03-12 | ECHO_ITS ---
Patient Info Name: Nirmala Allison Age: 82 years : 1940 Gender: Female Ht: 66 in Wt: 134 lbs BSA: 1.68 m2 HR: 78 bpm BP: 168 / 61 mmHg Technical Quality: Good Exam Date: 03/12/2022 10:25 AM Exam Location: [facility] Pulmonary Exam Room: 256 Patient Status: Inpatient Admit Date: 03/10/2022 Staff Ordering Physician: Susan Ramesh PA-C Panel Maker: Leslie Silva RDCS Attending Provider: Jeff Rain MD Referring Physician: Domitila COREY; Exam Type: CA echo doppler w bubble study Study Info Indications - CVA Complete two-dimensional, color flow and Doppler transthoracic echocardiogram is performed with agitated saline. Contrast/Agitated Saline Contrast/Ag. Saline: Agitated Saline Amount: 20.00 ml Administered By: Mery Jin RDCS Existing IV Access: Yes Summary 1. Left ventricular chamber dimension is normal. 2. Left ventricular systolic function is normal, estimated at 65-70%. 3. The left ventricular diastolic function is grade I diastolic dysfunction. 4. E/e' 8 is minimally elevated. 5. There is mild aortic valve sclerosis. 6. There is trace aortic valve regurgitation. 7. The mitral valve has mildly calcified annulus. 8. There is mild tricuspid valve regurgitation. 9. No pulmonary hypertension, estimated pulmonary arterial systolic pressure is 28 mmHg. Left Ventricle E/e' 8 is minimally elevated. Left ventricular chamber dimension is normal. Left ventricular systolic function is normal, estimated at 65-70%. The left ventricular diastolic function is grade I diastolic dysfunction. Right Ventricle Right ventricular chamber dimension is normal. Right ventricular systolic function is normal. Left Atria Left atrial chamber dimension is normal. Right Atria Right atrial chamber dimension is normal. Atrial Septum Agitated saline injection with and without valsalva maneuver opacified right side cardiac chambers without shunt to left side cardiac chambers. Intact interatrial septum visualized by 2D and agitated saline imaging. Aortic Valve The aortic valve is trileaflet. There is mild aortic valve sclerosis. There is no aortic valve stenosis. There is trace aortic valve regurgitation. Pulmonic Valve There is no pulmonic regurgitation. Mitral Valve The mitral valve has mildly calcified annulus. There is no mitral valve stenosis. There is no mitral valve regurgitation. Tricuspid Valve There is mild tricuspid valve regurgitation. No pulmonary hypertension, estimated pulmonary arterial systolic pressure is 28 mmHg. Pericardium/Pleural There is no pericardial effusion. Inferior Vena Cava Normal inferior vena cava with >50% collapse upon inspiration consistent with normal right atrial pressure, 5 mmHg. Aorta The aortic root size at the sinus of Valsalva is normal. Left Ventricular Outflow Tract Name Value Normal LVOT 2D LVOT Diameter 2.0 cm LVOT Doppler LVOT Peak Gradient 5 mmHg LVOT Mean Gradient 2 mmHg LVOT VTI
[2022-03-12 00:03] VITALS: BP 162/59; PULSE 75; RESP 18; TEMP 35.7; O2SAT 98
[2022-03-12 04:18] VITALS: BP 168/61; PULSE 78; RESP 18; TEMP 35.9; O2SAT 97
[2022-03-12 05:51] LABS: Albumin Level 3.5 g/dL (3.5-5.1); Anion Gap 7 mmol/L (8-16); Blood Urea Nitrogen 33 mg/dL (7-17); Calcium 8.9 mg/dL (8.4-10.2); Carbon Dioxide 25 mmol/L (22-30); Chloride 106 mmol/L (98-107); Estimated CRCL calculation 24 ml/min; Estimated Glomerular Filt Rate 33; Glucose 123 mg/dL (65-110); Magnesium 1.8 mg/dL (1.6-2.3); Phosphorus 3.9 mg/dL (2.5-4.5); Potassium 3.6 mmol/L (3.4-5.0); Sodium 138 mmol/L (137-145)
[2022-03-12 07:04] LABS: Folic Acid 8.9 ng/mL (2.76->20); Vitamin B12 > 1000.0 pg/mL (239-931)
[2022-03-12 07:58] LABS: Glucose Point of Care 126 mg/dl (65-105)
[2022-03-12] MEDS: ATORVASTATIN 40 MG TABLET PO (09:16)
[2022-03-12] MEDS: ASPIRIN 81 MG ENTERIC TABLET PO (09:16)
[2022-03-12] MEDS: polyethylene glycoL 3350 17 GM POWD.PACK PO (09:17)
[2022-03-12] MEDS: CLOPIDOGREL BISULFATE 75 MG TABLET PO (09:17)
[2022-03-12] MEDS: CHOLECALCIFEROL 1,000 UNITS TABLET 2000 UNITS PO (09:17)
[2022-03-12] MEDS: ENOXAPARIN 30 MG/0.3 ML SYRINGE SUB-Q (09:17)
[2022-03-12] MEDS: CYANOCOBALAMIN 1,000 MCG TABLET 1000 MCG PO (09:17)
[2022-03-12 11:00] VITALS: BP 134/54; PULSE 68; RESP 18; TEMP 36.6; O2SAT 96
--- NOTE | 2022-03-12 11:14 | WPDNEUROPN ---
Progress Note: A&P Assessment and Plan (1) Acute CVA (cerebrovascular accident): Code(s): I63.9 - Cerebral infarction, unspecified Status: Acute (2) Seizure disorder: Code(s): G40.909 - Epilepsy, unspecified, not intractable, without status epilepticus Status: Acute Assessment and Plan: EEG a weighted for further delineation otherwise at present the management is such along with the physical therapy patient obviously weak because of the bihemispheric stuttering type of stroke Subjective Date/time seen: 03/12/22 11:14 Interval history: Initially seen for the complaints of change in mental status with the possibility of the focal seizure versus a new stroke evaluation up until now include Doppler study of the carotid which revealed less than 50% stenosis bilaterally and the MRI of the brain documented focal small cortical restricted diffusion in the posterior left frontal lobe near the vertex in addition to bilateral basal gangliar left laminar and left cerebellar infarct patient has been receiving 81 mg of aspirin daily in addition to clopidogrel 75 mg daily and metformin 1 tablet daily in addition to pravastatin 1 tablet daily has remained afebrile and normotensive an EEG is pending Review of Systems Review of Systems: All systems reviewed & are unremarkable except as noted in HPI and below Exam Narrative: remains awake alert his speech nor dysphasic no dysarthria the cranial examination is normal motor examination revealed her to have decreased sensation particular the right hand reflexes sluggish but symmetrical and plantars are downgoing Objective Data Vital Signs Vital Signs: Vital Signs - 24 hr 03/11/22 14:00 03/11/22 19:35 03/11/22 20:00 Temperature 36.3 C L 36.1 C L Pulse Rate 72 70 70 Respiratory Rate 20 17 17 Blood Pressure 134/56 L 133/50 L Pulse Oximetry 98 99 99 Oxygen Delivery Room Air 03/12/22 00:03 03/12/22 04:18 03/12/22 11:00 Temperature 35.7 C L 35.9 C L 36.6 C Pulse Rate 75 78 68 Respiratory Rate 18 18 18 Blood Pressure 162/59 H 168/61 H 134/54 L Pulse Oximetry 98 97 96 Oxygen Delivery Intake/Output Intake/Output: Intake & Output 03/09/22 03/10/22 03/11/22 03/12/22 23:59 23:59 23:59 23:59 Intake Total 1420 720 390 100 Output Total 600 0 Balance 820 720 390 100 Meds/Results Medications: Active Medications Generic Name Dose Route Start Last Admin Trade Name Ulisesq PRN Reason Stop Dose Admin Acetaminophen 650 mg 03/08/22 14:26 03/11/22 11:13 Acetaminophen 325 Mg Tablet PO 650 mg Q4H PRN Administration Mild Pain (1-3) or Fever Aspirin 81 mg 03/09/22 09:00 03/12/22 09:16 Aspirin 81 Mg Enteric Tablet PO 81 mg QAM HALEY Administration Atorvastatin Calcium 40 mg 03/11/22 09:00 03/12/22 09:16 Atorvastatin 40 Mg Tablet PO 40 mg DAILY HALEY Administration Clopidogrel Bisulfate 75 mg 03/09/22 09:00 03/12/22 09:17 Clopidogrel Bisulfate 75 Mg Tablet PO 75 mg DAILY HALEY Administration Cyanocobalamin 1,000 mcg 03/09/22 09:00 03/12/22 09:17 Cyanocobalamin 1,000 Mcg Tablet PO 1,000 mcg DAILY HALEY Administration Dextrose 12.5 gm 03/08/22 23:02 Dextrose 50% 25 Gm/50 Ml Syringe IV PUSH PRN PRN Hypoglycemia Protocol Enoxaparin Sodium 30 mg 03/09/22 09:00 03/12/22 09:17 Enoxaparin 30 Mg/0.3 Ml Syringe SUB-Q 30 mg DAILY HALEY Administration Glucagon 1 mg 03/08/22 23:02 Glucagon For Inj 1 Mg Vial IM PRN PRN Hypoglycemia Protocol Glucose 15 gm 03/08/22 23:02 Glucose Oral Gel 15 Gm Of Glucse In 37.5 Gm Tube PO PRN PRN Hypoglycemia Protocol Dextrose 1,000 mls @ 100 mls/hr 03/08/22 23:02 Dextrose 5% 1,000 Ml IVPB PRN PRN Hypoglycemia Protocol Ceftriaxone Sodium/Dextrose 1 gm in 50 mls @ 100 mls/hr 03/11/22 09:00 03/12/22 09:16 Rocephin 1 Gm/D5w 50 Ml IVPB 100 mls/hr Q24H HALEY Administration I
[2022-03-12 12:18] LABS: Glucose Point of Care 142 mg/dl (65-105)
--- NOTE | 2022-03-12 13:35 | PCNFU ---
Nutrition Follow-Up Complete: Suboptimal po intake related to reduced appetite as evidenced by pt report and charted intake Goal: meet nutritional needs - Pt is not meeting goal, continue current goal Pt current nutrition is heart healthy. Last recorded weight is 59.3 kg, loss of 2.3kg from initial visit (03/09). Bowel Motility: +BM on 03/12 Labs Reviewed: 03/12: GFR 33, BUN 33, Cr 1.50, Glu 123 Meds Noted: Plavix, Lovenox, NovoLog, Zofran, Vit D, Vit B12 Skin: Pressure Ulcer Stage II Coccyx Additional Notes: Pt reports a poor appetite and is eating roughly about 25% of meals with Ensure Compact BID (220kcal, 9gm pro). 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 Monitor intake, wt, labs. Follow up in 5 days.
[2022-03-12 13:40] VITALS: BP 131/42; PULSE 73; RESP 18; TEMP 36.3; O2SAT 99
--- NOTE | 2022-03-12 13:58 | PCNSR ---
On 03/12/22, the student, Calista Dyer, provided care and completed [facility] documentation on this patient. I have reviewed the student's documentation and agree with the findings.
[2022-03-12] MEDS: ACETAMINOPHEN 325 MG TABLET 650 MG PO (14:50)
--- NOTE | 2022-03-12 16:01 | PM.DS ---
DS: Admitting Diagnosis Discharge Date 03/12/22 Admitting Diagnosis Confusion DS: Discharge Diagnosis Discharge Diagnosis (1) Acute metabolic encephalopathy: Code(s): G93.41 - Metabolic encephalopathy Status: Acute Assessment and Plan: Patient developed worsening confusion and was weaker with physical therapy. Chest x-ray showed mild atelectasis at the left lung base. CT the brain showed old infarcts. Brain MRI showed old bilateral basal ganglia, left lamina and left cerebellar infarcts. She was also noted to have a focal and small area of cortical restricted diffusion in the posterior left frontal lobe consistent with acute infarct. Suspect acute mental status changes related to stroke and/or UTI. She became more oriented. We continued Plavix and aspirin. Statin changed to Lipitor. She worked with Speech, PT and OT. (2) Acute CVA (cerebrovascular accident): Code(s): I63.9 - Cerebral infarction, unspecified Status: Acute Assessment and Plan: MRI of the brain showing small left cortical CVA consistent with acute small stroke. Appreciate Neurology input. Carotid ultrasound showing <50% stenosis of bilateral ICA. Echo showing EF 65-70% with Grade I diastolic dysfunction. We continued aspirin, Plavix and statin therapy. (3) Urinary tract infection: Code(s): N39.0 - Urinary tract infection, site not specified Status: Acute Assessment and Plan: UA noted. BCx NGTD. Urine culture growing Klebsiella aerogenes susceptible to ceftriaxone. Treated with IV ceftriaxone. She completed 5 days of abx treatment. (4) Transient alteration of awareness: Code(s): R40.4 - Transient alteration of awareness Status: Acute Assessment and Plan: As above (5) Acute kidney injury superimposed on chronic kidney disease: Code(s): N17.9 - Acute kidney failure, unspecified; N18.9 - Chronic kidney disease, unspecified Status: Acute Assessment and Plan: Patient has underlying CKD per family. No old records here to review. Creatinine on admission was 1.7 but trended down to 1.3. Probably related to UTI and/or dehydration. Patient had a mild non gap metabolic acidosis probably related to renal recovery but this resolved. (6) Type 2 diabetes mellitus: Code(s): E11.9 - Type 2 diabetes mellitus without complications Status: Acute Assessment and Plan: A1c 5.9. The patient's blood glucose was monitored with AccuCheks covering with sliding scale. Hypoglycemia protocol was available as needed. (7) Right humeral fracture: Code(s): S42.301A - Unspecified fracture of shaft of humerus, right arm, initial encounter for closed fracture Status: Acute Assessment and Plan: Patient had a ground level fall last week and sustained a right humeral fracture. Acetaminophen was available as needed for pain. We continued sling for immobilization. Continue PT and OT after discharge. Follow up with her orthopedic physician at next scheduled appointment DS: Summary Hospital Course Reason for hospitalization: 82yo female with DM and CKD here for confusion. Please see H&P for details. Hospital Course: Please see above for details of hospital course Status at Discharge Cognitive/behavioral status at discharge: stable Time Spent with Patient Time attestation: Total time spent providing and/or coordinating discharge services:35 minutes Time spent: Greater than 30 minutes Exam Narrative: AF 97.1 131/42 73 18 99% ra Gen - NARD lying semi recumbent in bed Chest - CTA bilaterally, nml RR CV - RRR S1/S2 Abd - Soft, NT/ND, Positive BS Ext - No pedal edema. Rt arm in sling. 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 2+ radial pulses Neuro - asleep but awakens easily and is oriented x4. Nonfocal exam. Psych - Nml mood and affect Skin - Warm and dry DS: Data Data Completed and Pending Labs on day of discharge: Labs fr
--- NOTE | 2022-03-12 16:26 | PCSTNOTE ---
While awaiting MBS order, therapist spoke with REAL De Paz, after lunch who reported this patient took her pills well and also consumed lunch with signs of aspiration. Modified Barium Swallow study order is being cancelled at this time according to physician, Dr. Rain. Follow-up at next facility is suggested to assure improving swallowing skills.
[2022-03-12 16:33] LABS: EDCOVIDSCREEN Negative (Negative)
== END 2022-03-12 19:10 | DRG 64 ==
LOC: ANHED 15:03 → ANH2MED 16:29
PROVIDERS: Nurse Practitioner; Physician Assistant; Admitting Provider Family Medicine; Emergency Provider Emergency Medicine; PCP Internal Medicine Geriatric Medicine; Visit Provider Internal Medicine
DX: I63.9 Cerebral infarction, unspecified (principal); G93.41 Metabolic encephalopathy; N39.0 Urinary tract infection, site not specified; N17.9 Acute kidney failure, unspecified; S42.211A Unspecified displaced fracture of surgical neck of right humerus, initial encounter for closed fracture; R41.0 Disorientation, unspecified; W18.39XA Other fall on same level, initial encounter; B96.89 Other specified bacterial agents as the cause of diseases classified elsewhere; Z20.822 Contact with and (suspected) exposure to COVID-19; E86.0 Dehydration; E11.22 Type 2 diabetes mellitus with diabetic chronic kidney disease; N18.30 Chronic kidney disease, stage 3 unspecified; Z96.649 Presence of unspecified artificial hip joint; E78.5 Hyperlipidemia, unspecified; J44.9 Chronic obstructive pulmonary disease, unspecified; M19.90 Unspecified osteoarthritis, unspecified site; I34.0 Nonrheumatic mitral (valve) insufficiency; E55.9 Vitamin D deficiency, unspecified; Z66 Do not resuscitate; Z86.718 Personal history of other venous thrombosis and embolism; Z86.73 Personal history of transient ischemic attack (TIA), and cerebral infarction without residual deficits; Z85.3 Personal history of malignant neoplasm of breast; Z90.710 Acquired absence of both cervix and uterus
CPT/HCPCS: 36415; 51701; 70450; 70551; 71045; 80048; 80053; 80061; 80069; 81001; 82550; 82607; 82746; 82948; 83036; 83605; 83735; 84443; 85025; 85027; 85610; 85730; 87040; 87077; 87086; 87186; 87426; 92523; 92526; 92610; 93005; 93306; 93880; 96361; 96365; 96372; 96375; 96376; 97110; 97116; 97161; 97165; 97530; 97535; 99285; A9270; C9803; G0378; J0696; J1650; J7030